=== PATIENT | female | born 1950 | race Caucasian/White ===

== ENCOUNTER 2016-12-26 14:48 | Outpatient (CLI) | payer OTHER ==
[2014-10-29 15:53] VITALS: BP 180/90
[2016-12-26 15:04] LABS: BASOPHILS % 0.5 (0.0-1.5); EOSINOPHILS % 1.5 % (0.0-6.8); MEAN CORPUSCULAR HEMOGLOBIN 26.4 pg (28.0-34.0); MEAN CORPUSCULAR VOLUME 86.5 fl (80.0-100.0); MONOCYTES % 5.4 % (0.0-11.0); NEUTROPHILS # 8.3 # k/uL (1.4-7.7)
[2016-12-26 15:40] LABS: eGFR (African) > 60; eGFR (Non-African) > 60
== END 2016-12-26 14:50 ==
LOC: LAB 14:48
PROVIDERS: ATTEND Physician Assistant
DX: L98.9 Disorder of the skin and subcutaneous tissue, unspecified (principal); Z00.00 Encounter for general adult medical examination without abnormal findings
CPT/HCPCS: 36415; 80053; 80061; 85025

== ENCOUNTER 2017-07-08 14:20 | Outpatient (CLI) | payer OTHER ==
[2014-10-29 15:53] VITALS: BP 180/90
--- NOTE | 2017-07-08 15:05 | Diagnostic Imaging Report ---
ERIC MAN [facility] [id number] [facility] [address] [place] [address]. [id number] Report Submission Date: Jul 08, 2017 3:01:23 PM MOTION STUDY ANALYST Patient Study Name: KIKE PUGH Date: Jul 08, 2017 2:45:37 PM MOTION STUDY ANALYST Modality Type: DX Gender: F Description: PELVIS : 48 Institution: [facility] Physician: ERIC MAN Examination: Plain film right hip History: RT HIP PAIN AFTER FALL X 3 DAYS AGO (Hx) Comparison exams: None provided Findings: 2 views of the right hip demonstrates significant femoral head/ acetabular degenerative changes. Significant joint space narrowing and a septic spurring. No cortical destruction. No dislocation. Generalized osteopenia. Impression: Advanced articular degenerative changes. No displaced fracture or dislocation. Electronically signed on Jul 08, 2017 3:01:23 PM MOTION STUDY ANALYST by: Justyn TIPTON
== END 2017-07-08 14:21 ==
LOC: RAD 14:20
PROVIDERS: ATTEND Physician Assistant
DX: M25.551 Pain in right hip (principal); W19.XXXA Unspecified fall, initial encounter; Y99.9 Unspecified external cause status
CPT/HCPCS: 73502

== ENCOUNTER 2017-08-21 10:20 | Outpatient (CLI) | payer OTHER ==
[2014-10-29 15:53] VITALS: BP 180/90
== END 2017-08-21 10:23 ==
LOC: RAD 10:20
PROVIDERS: ATTEND Physician Assistant
DX: M85.80 Other specified disorders of bone density and structure, unspecified site (principal); M81.0 Age-related osteoporosis without current pathological fracture
CPT/HCPCS: 77080

== ENCOUNTER 2017-09-17 09:43 | Outpatient (CLI) | payer OTHER ==
[2014-10-29 15:53] VITALS: BP 180/90
[2017-09-17] MEDS ORDERED: SALINE FLUSH 10 ML DISP.SYRIN IVF ONE (09:45)
[2017-09-17] MEDS ORDERED: Lidocaine 1% 5ml(IM or SUTURE)(PAIN CLINIC) ONE (09:45)
[2017-09-17] MEDS ORDERED: TRIAMCINOLONE ACETONID 40MG/ML VIAL ONE (09:45)
--- NOTE | 2017-09-17 15:11 | HISTORY AND PHYSICAL REPORT ---
REFERRING PHYSICIAN: Dr. Alberta Kaufman Dear Dr. Kaufman: HISTORY OF PRESENT ILLNESS: I had the opportunity of seeing Malorie Eden today as an outpatient at [facility]. Malorie is a very nice 66-year-old white female with a 1 to 2 year history of back pain now radiating into the right hip. She describes symptoms worse over the course of the day and worse when she is standing and walking on right side of leg, posterior thigh, and lateral hip. She denies pain on the left. She denies incontinence of bowel or bladder. She denies symptoms of neurogenic claudication. She had x-ray images done of her hips which revealed marked osteoarthritis. She is presenting with symptoms of right-sided sciatica. She says the pain resolves when she is sitting or lying down. It is worse with activity. She rates the symptoms as severe as 9 over 10 on the visual analog scale and never better than 2 over 10 on the visual analog scale and getting worse. PAST MEDICAL HISTORY: 1. History of vision problems. 2. Hypertension. 3. Osteoarthritis. 4. Depression. 5. Chronic pain. 6. Unspecified skin disorder. PAST SURGICAL HISTORY: Tubal ligation. DAILY MEDICATIONS: 1. Gabapentin 100 mg b.i.d. 2. Lisinopril 40 mg daily. 3. Citalopram 40 mg daily. 4. Diltiazem 240 mg daily. In the past, she took [place] daily for pain. She also took Soma in the past for pain. ALLERGIES: She has no known drug allergies. SOCIAL HISTORY: Unknown marital status. Her previous occupation was "nursing." She is not currently employed. She lives at home with her mother. FAMILY HISTORY: She has a sister with pancreatic cancer. A brother with hepatitis and liver cancer. Father with colon cancer. Mother with dementia. REVIEW OF SYSTEMS: In the past month or so, she reports she is feeling depressed. Pain is worsened with lying, standing, bending, sitting, walking, twisting, getting up from a chair, and changes in weather. Pain is improved with lying down. PHYSICAL EXAMINATION: Vital Signs: BP: 140/70, P: 62, R: 20, oxygen saturation is 98% on room air. HEENT: Pupils are equal, round, and reactive to light and accommodation. Extraocular movements intact. No facial droop. Neck: There is full range of motion of the cervical spine. No evidence of adenopathy. Thyroid is nontender, not enlarged. Carotids are without bruits. Chest: Clear to auscultation bilaterally. Normal chest excursion. Heart: Regular rate and rhythm without murmur. Abdomen: Benign. Normoactive bowel sounds. Motor/sensory: Intact in the upper and lower extremities. Moves all extremities freely. Extremities: There is a positive straight leg raise on the right. Negative straight leg raise on the left. Strength is 5/5 and equal on flexion of the hip, extension of the hip, flexion of the foot, and extension of the foot. Reflexes are 2+ and equal at patellar tendon and Achilles tendon. There is negative WAYLON. ASSESSMENT: Right-sided radiculitis, likely at L5 dermatomal distribution. PLAN: Consider lumbar epidural steroid injection today and we will order an MRI study of the lumbar spine. We will follow this nice lady up next month. Thank you for allowing me to take part in the care of this nice lady. I appreciate the opportunity to take part in the care of your patients. cc: Dr. Alberta TIPTON
--- NOTE | 2017-09-17 15:24 | LESI WITH FLUORO ---
OPERATIVE PROCEDURE: Right L5-S1 epidural steroid injection with fluoroscopic guidance. DESCRIPTION OF PROCEDURE: The risks and benefits were discussed with the patient including the risk of infection, bleeding, nerve injury, and headache, as well as the risks of steroid exposure causing hyperglycemia, hypertension, osteoporosis, or increased infectious risks. The patient understood these risks and agreed to proceed. Consent was obtained prior to the procedure. The patient was placed in the prone position on the fluoroscopy table with a pillow underneath the abdomen to afford anterior flexion of the lumbar spine. The low back was cleaned and a sterile drape was applied. An 18-gauge thin wall Tuohy epidural needle was advanced with normal saline loss of resistance technique and direct fluoroscopic guidance with a right paramedian approach at the L5-S1 level. On obtaining loss of resistance to normal saline, it was verified that there was no aspiration of CSF or blood. Furthermore, the needle tip location was verified with lateral and AP fluoroscopic views. Omnipaque 240 myelogram dye was injected through the epidural needle. The distribution of the dye was noted to be within the desired distribution within the lumbar epidural space. The medication was injected into the epidural space. The stylet was replaced in the needle and the needle was removed from the back. The patient tolerated the procedure well. The back was cleaned and a bandage was applied over the injection site. The patient was monitored for 20 minutes following the procedure. during this time the vital signs remained stable and the patient experienced no adverse sequelae. The patient was discharged in good condition. ASSESSMENT: Right-sided radiculitis, likely at L5 dermatomal distribution. PLAN: Right L5-S1 epidural steroid injection with fluoroscopic guidance. FOLLOWUP: Return to clinic if problems develop or worsen. cc: Dr. Alberta TIPTON
== END 2017-09-17 09:44 ==
LOC: OUT 09:43
PROVIDERS: ATTEND Anesthesiology Pain Medicine
DX: M54.16 Radiculopathy, lumbar region (principal)
CPT/HCPCS: 62323; 99213; G0463; J3301; A4550; Q9966

== ENCOUNTER 2017-10-22 10:39 | Outpatient (CLI) | payer OTHER ==
[2014-10-29 15:53] VITALS: BP 180/90
[~2017-10-22 10:39] MED LIST: Lidocaine 1% 5ml(IM or SUTURE)(PAIN CLINIC) ONE; TRIAMCINOLONE ACETONID 40MG/ML VIAL ONE; WATER FOR INJECTION,STERILE 100 ML VIAL IJ ONE
--- NOTE | 2017-10-24 15:59 | LESI WITH FLUORO ---
SUBJECTIVE: Ms. Eden follows up today and her right lower extremity radicular pain is much improved. She says she still has pain in the right low back and right posterior thigh when she walks any great distance. She did not obtain an MRI study and I have explained to her, as she is better but the symptoms are not resolved, I am going to repeat a right L5-S1 epidural steroid injection today. I am going to order an MRI study and have her obtain physical therapy for stretching, nerve glide, and home exercise program. I will follow her up in 6 to 8 weeks. OPERATIVE PROCEDURE: Right L5-S1 epidural steroid injection with fluoroscopic guidance. DESCRIPTION OF PROCEDURE: The risks and benefits were discussed with the patient including the risk of infection, bleeding, nerve injury, and headache, as well as the risks of steroid exposure causing hyperglycemia, hypertension, osteoporosis, or increased infectious risks. The patient understood these risks and agreed to proceed. Consent was obtained prior to the procedure. The patient was placed in the prone position on the fluoroscopy table with a pillow underneath the abdomen to afford anterior flexion of the lumbar spine. The low back was cleaned and a sterile drape was applied. A needle was advanced with normal saline loss of resistance technique and direct fluoroscopic guidance with a right paramedian approach at the L5-S1 level. On obtaining loss of resistance to normal saline, it was verified that there was no aspiration of CSF or blood. Furthermore, the needle tip location was verified with lateral and AP fluoroscopic views. Omnipaque 240 myelogram dye were injected through the epidural needle. The distribution of the dye was noted to be within the desired distribution within the lumbar epidural space. The medication was injected into the epidural space. The stylet was replaced in the needle and the needle was removed from the back. The patient tolerated the procedure well. The back was cleaned and a bandage was applied over the injection site. The patient was monitored for 20 minutes following the procedure. during this time the vital signs remained stable and the patient experienced no adverse sequelae. The patient was discharged in good condition. ASSESSMENT: Lumbar radiculitis, now improved. PLAN: Right L5-S1 epidural steroid injection with fluoroscopic guidance. FOLLOWUP: Return to clinic if problems develop or worsen. cc: Dr. Alberta TIPTON
== END 2017-10-22 10:40 ==
LOC: OUT 10:39
PROVIDERS: ATTEND Anesthesiology Pain Medicine
DX: M54.16 Radiculopathy, lumbar region (principal)
CPT/HCPCS: 62323; 99214; G0463; J3301; Q9966; A4550

== ENCOUNTER 2018-03-19 11:05 | Outpatient (CLI) | payer OTHER ==
[2014-10-29 15:53] VITALS: BP 180/90
[2018-03-19 11:31] LABS: BASOPHILS % 0.3 (0.0-1.5); EOSINOPHILS % 1.6 % (0.0-6.8); MONOCYTES % 6.3 % (0.0-11.0)
[2018-03-19 11:53] LABS: eGFR (Non-African) > 60
== END 2018-03-19 11:06 ==
LOC: LAB 11:05
PROVIDERS: ATTEND Family Medicine
DX: M79.604 Pain in right leg (principal); R73.9 Hyperglycemia, unspecified; R20.2 Paresthesia of skin
CPT/HCPCS: 36415; 80053; 82607; 82746; 83036; 84443; 85025

== ENCOUNTER 2018-04-21 08:26 | Day surgery (SDC) | payer OTHER ==
[2014-10-29 15:53] VITALS: BP 180/90
[2018-04-21] MEDS ORDERED: PROPOFOL 200 MG/20 ML VIAL IV ONE (08:48)
--- NOTE | 2018-04-23 10:41 | GI Report ---
REFERRING PHYSICIAN: Dr. Alberta Kaufman APPLICATIONS PACKAGER: Teofilo Roche MD PROCEDURE MEDICATION: Propofol as per anesthesia. INDICATIONS: 1. Anemia. 2. Family history of colorectal cancer in her father. PROCEDURE PERFORMED: Colonoscopy. PROCEDURE: An Olympus video colonoscope was advanced to the rectum. The prep was fair. It was liquid with dark coloration. We had to lavage a number of areas to see. We did advance all the way to the cecum. The appendiceal orifice was normal. The terminal ileum looked normal. No obvious Crohns. On slow withdrawal, the cecum, ascending colon, and transverse colon with redundancy. No obvious intraluminal lesions noted, though we did have to lavage a number of areas to clear to improve visibility. The descending colon and sigmoid, again, redundancy. No obvious intraluminal lesions. Lavage was used to help improve visibility. Retroflexion of the rectum showed hemorrhoids. Patient tolerated the procedure well. FINDINGS: 1. An atonic redundant colon with only a fair prep. 2. No obvious bleeding site noted. RECOMMENDATIONS: 1. Increase bulk fiber in her diet. 2. I recommend she discontinue tobacco usage. 3. Consider re-looking at her colon in 10 years, sooner if clinically indicated. cc: Dr. Alberta TIPTON
--- NOTE | 2018-04-23 10:44 | GI Report ---
REFERRING PHYSICIAN: Dr. Alberta Kaufman FREIGHT CLAIM INVESTIGATOR: Teofilo Roche MD PROCEDURE MEDICATION: Propofol as per anesthesia. HISTORY: This 67-year-old woman was found to be anemic with a hemoglobin around 10 and a hematocrit around 30. She denies noting blood in her stool. She has been a cigarette smoker for 30 plus years. Family history of her father having had colon cancer. Sister with pancreatic cancer and a brother with liver cancer. Patient has never had an endoscopy or a colonoscopy. She does take Aleve or Naprosyn daily because of arthritis pain. She denies difficulty swallowing. Denies obvious change in bowel habits. PROCEDURE NUMBER ONE PERFORMED: Endoscopy. INDICATIONS: Anemia. PROCEDURE: An Olympus video endoscope was passed through the esophagus under direct visualization. She has grade 2 esophagitis of the GE junction. No obvious Barretts. The stomach was entered. In the antrum, she has fairly significant gastritis. There was some erosion and some friability. Biopsies were taken for pathology. Duodenal bulb and first and second part of the duodenum exam with a little duodenitis but no obvious villous atrophy. No obvious bleeding site. Patient tolerated the procedure well. FINDINGS: 1. Severe antral gastritis. Biopsies pending. 2. Esophagitis grade B. 3. Duodenitis. RECOMMENDATIONS: 1. Put her on a PPI daily, like omeprazole, before her first meal. 2. I recommend she discontinue tobacco use. 3. I recommend she discontinue Naprosyn use for the time being until that heals. 4. Follow up biopsy results. cc: Dr. Alberta TIPTON
== END 2018-04-21 08:28 ==
LOC: OPSURG 08:26
PROVIDERS: ATTEND Internal Medicine Gastroenterology
DX: D64.9 Anemia, unspecified (principal); K64.8 Other hemorrhoids; Q43.8 Other specified congenital malformations of intestine; K20.8 Other esophagitis; K29.80 Duodenitis without bleeding; K29.30 Chronic superficial gastritis without bleeding; Z80.0 Family history of malignant neoplasm of digestive organs
CPT/HCPCS: 43239; 88305; 88344; G0105; J2704; S1016

== ENCOUNTER 2019-02-04 10:47 | Outpatient (CLI) | payer OTHER ==
[2014-10-29 15:53] VITALS: BP 180/90
[2019-02-16 13:08] LABS: eGFR (Non-African) > 60
--- NOTE | 2019-02-17 13:12 | Diagnostic Imaging Report ---
DEANGELO PINO [facility] [address] [facility] [address] [place], [place]. [address] Report Submission Date: Feb 04, 2019 12:25:51 PM CDT Patient Study Name: KIKE PUGH Date: Feb 04, 2019 11:12:00 AM CDT Modality Type: CT\SR Gender: F Description: CT HEAD W/O : 48 Institution: [facility] Physician: DEANGELO PINO Examination: CT head without contrast History: LEFT HAND WEAKNESS X1 WEEK Comparison exam: None available Technique: Noncontrast head CT protocol. Findings: Ventricles and sulci are consistent for patient age. Cerebrocerebellar parenchyma demonstrates mild periventricular low attenuation consistent with small vessel disease. No evidence for parenchymal hemorrhage. No evidence for mass or mass effect. No midline shift. No extra axial fluid collections. Partial visualization of the paranasal sinuses, mastoid air cells, orbits, skull and scalp without gross irregularity. Anterior falx calcifications. Impression: Mild age related changes. No acute parenchymal process. No hemorrhage. Electronically signed on Feb 04, 2019 12:25:51 PM CDT by: Justyn TIPTON
== END 2019-02-04 11:05 ==
LOC: LAB 10:47
PROVIDERS: ATTEND Family Medicine
DX: R53.1 Weakness (principal); R45.0 Nervousness
CPT/HCPCS: 36415; 70450; 80048; 84443